=== PATIENT | female | born 1955 | race Caucasian/White ===

== ENCOUNTER 2017-07-16 21:20 | Inpatient (IN) | payer MEDICARE ==
[2017-07-17 02:00] VITALS: BP 148/68
--- NOTE | 2017-07-17 06:41 | Psychosocial Evaluation ---
DATE OF SERVICE: PSYCHIATRIC INITIAL EVALUATION AND MENTAL STATUS EXAM PATIENT'S AGE: 61. SEX: Female. PHYSICIAN: Dr. Baker. CHIEF COMPLAINT: 5150 hold for dangers to self and grave disability. HISTORY OF PRESENT ILLNESS: The patient is a 61-year-old female, who was placed on 5150 hold for dangerous to herself and grave disability after the patient reported to be confused and hallucinating. Chart reviewed and patient interviewed. The patient is actively hallucinating and the patient thinks that she is attacked by insects and there are insects that are attacking her. The patient also has been suspicious and had been paranoid and in angry mood. The patient also has been restless. She also was unable to provide any information regarding her current abilities or treatment. During my interview, the patient is angry and she seems to be severely paranoid. She also was rambling and actively talking to herself. The patient also admitted to auditory hallucinations, but she cannot elaborate on what the voices are telling her. PAST PSYCHIATRIC HISTORY: The patient has history of what seems to be bipolar versus schizoaffective disorder. PAST MEDICAL HISTORY: The patient has history of hypertension and heart murmur. Also, during my interview, the patient was having shaky hands and what might be a tardive dyskinesia. SOCIAL HISTORY: The patient said that she lives with her daughter and that she has 3 children. She is . She denies any alcohol or any street drug use. ALLERGIES: No known allergies. MENTAL STATUS EXAMINATION: The patient appears slightly older than her stated age. Disheveled. Shaky hands. Uncooperative. Thought processes are circumstantial with flight of ideas. The patient did not answer questions regarding hallucinations or delusions, but she reported before earlier that she has auditory hallucinations. The patient is paranoid and delusion and thinking that insects are attacking her. The patient denied suicidal or homicidal ideations. The patient is alert and oriented to time, place, person, and situation. Unable to assess her immediate or recent memory because the patient is uncooperative, but she did remember her date. Poor insight and poor judgment. ASSESSMENT/PRIMARY DIAGNOSIS: Bipolar disorder, severe, with psychotic features. MEDICAL PROBLEMS: Hypertension and heart murmur. TREATMENT PLAN: We will monitor the patient's behavior and condition closely. We will continue Seroquel and we will adjust the dose. Also, we will work on her ineffective coping, her agitation and paranoia. ESTIMATED LENGTH OF STAY: 5-7 days. THE PATIENT'S STRENGTHS AND WEAKNESSES: The patient's strength is not clear at this time. Weaknesses is ineffective coping. DISCHARGE PLAN: The patient will return to live in her placement with outpatient treatment and followup. CRITERIA FOR DISCHARGE: The patient will not be agitated or psychotic and will stabilize psychotropic medications and will establish outpatient treatment plans. [facility]# [id number]
--- NOTE | 2017-07-17 11:43 | History & Physical ---
ADMIT DATE: PATIENT IDENTIFICATION: A 61-year-old female. REQUESTING PHYSICIAN: Dr. Nish Baker. REASON FOR ADMISSION: Medical management. HISTORY SOURCE: Reviewing the chart, talking to the staff. The patient is an extremely poor historian. CHIEF COMPLAINT: "Where the star was born." HISTORY OF PRESENT ILLNESS: A 61-year-old female who was brought in to [facility] from [facility] when patient presented to Emergency Room for disorganized thoughts and unable to take care of herself. When the patient was evaluated by Emergency Room MD, the patient was also seen by psychiatrist. It was recommended the patient should be admitted to inpatient psychiatric hospital for her psychiatric illness management. The patient has longstanding history of psychiatric illnesses. PAST MEDICAL HISTORY: Remarkable for heart murmur and hypertension. MEDICATIONS AT HOME: Seroquel. ALLERGIES: NONE. SOCIAL HISTORY: According to the patient, she lives in [facility]. The patient does not smoke, does not drink, does not take drugs. MENSTRUAL AND GYNECOLOGIC HISTORY: The patient is menopausal. She has one child and she lives in [place]. OTHER HISTORY: The patient was unable to provide. FAMILY MEDICAL HISTORY: Unremarkable because the patient tells me all history is positive. REVIEW OF SYSTEMS: Denies any chest pain, shortness of breath, palpitation, dizziness, nausea, vomiting, diarrhea, dysuria, hematuria, hematochezia, melena. No seizure or syncopal episode. No weight loss or weight gain. No tingling, numbness. PHYSICAL EXAMINATION: GENERAL: The patient is alert, awake, lying in the bed without any acute distress. VITAL SIGNS: Temperature 98, pulse is 64, respiratory rate 18, blood pressure 130/70. HEENT: Normocephalic, atraumatic. Extraocular muscles are intact. Tongue was pink and coated. Poor dentition noted. No oral lesion noted. No sinus tenderness. External ____. NECK: Supple, no JVD, No hepatojugular reflux. No lymphadenopathy, thyromegaly, or carotid bruit. HEART: Both heart sounds are regular. No S3, no S4, no murmur. CHEST: Lung equal in expansion, no wheezing, no crackles. ABDOMEN: Soft. No guarding, no rigidity. Liver is not palpable. No palpable mass. EXTREMITIES: No edema, no cyanosis or clubbing present +2, no calf tenderness noted. NEUROLOGIC: Alert, awake, but not oriented to time, place, person. 2-12 cranial nerves are intact. Power in upper or lower extremities 5-. Sensation to touch intact. Babinskis in both toes are going down. Some involuntary tremors reported upon interviewing and examination. CLINICAL IMPRESSION: 1. Possible extrapyramidal movements versus underlying essential tremor. 2. Hypertension by history. Remaining normotensive. 3. Degenerative joint disease. 4. Obesity. 5. Psychotic disorder exacerbation. 6. Fall risk. PLAN: 1. Psychotic evaluation and management deferred to psychiatrist. 2. Fall precautions. 3. Monitor blood pressure. 4. Possible adding Cogentin after discussion with psychiatrist. 5. Nutritional care. 6. General nursing care. 7. We will follow this patient during the stay on as needed basis. JOB# [id number]
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
[2017-07-19] MEDS ORDERED: Haloperidol Lactate 5 mg/mL 1mL Vial ONE (07:14)
[2017-07-19] MEDS ORDERED: Haloperidol Lactate 5 mg/mL 1mL Vial IM ONE (07:15)
--- NOTE | 2017-07-19 20:54 | Progress Notes ---
DATE: 07/19/2017 SUBJECTIVE: Chart reviewed and the patient interviewed. Also discussed the patient's condition with the staff and reviewed records and labs. The patient continued to be delusional and still has unpredictable behavior. The patient also is trying hitting staffs. The patient also is still easily agitated and irritable and paranoid. She continued to be monitored on one-to-one observation because of her unpredictable behavior and condition with the staff. Otherwise, the patient is compliant with taking medications with no side effect of medications except shaky, but seems to be less with the addition of propranolol. ASSESSMENT: The patient is still dangerous to others. TREATMENT PLAN: Continue monitoring her behavior and her condition closely. Also, continue one-to-one observation. Also, continue to work on her poor impulse control. Also, we will increase Seroquel to 75 mg 3 times a day and continue to follow up. JOB# [id number]
--- NOTE | 2017-07-20 14:41 | Progress Notes ---
DATE: 07/20/2017 SUBJECTIVE: The patient seen and examined. Unable to get meaningful history from the patient. Discussed with nursing staff about their concerns and treatment plan. PHYSICAL EXAMINATION: VITAL SIGNS: Temperature 98.6, pulse is 80, respiration rate is 16, blood pressure 144/80. HEENT: No facial asymmetry. NECK: Supple, no JVD. HEART: Regular. CHEST: Lung equal in expansion. No wheezing, no crackles. ABDOMEN: Soft. EXTREMITIES: No edema. CLINICAL IMPRESSION: 1. Most likely essential tremor. 2. Hypertension. 3. Degenerative joint disease. 4. Psychotic disorder. 5. Fall risk. PLAN: Inderal for the essential tremor. Continue with provide symptoms management and provide general nursing care and also fall precautions. Psychotic evaluation deferred to psychiatrist. The patient does have MRSA colonization positive, which for that, Bactroban ointment will be given to the patient as well. JOB# [id number]
--- NOTE | 2017-07-20 22:28 | Progress Notes ---
DATE: SUBJECTIVE: The patient was seen and evaluated. The patient's chart reviewed. This is Dr. Bateman covering for Dr. Baker. IDENTIFYING DATA: This is a 61-year-old female who was initially brought in on , on a hold and who is 5250 was upheld yesterday for danger to self and grave disability. The patient reported to be hallucinating. She is actively hallucinating when she came in, disorganized thoughts, as early yesterday she had required emergent medications to target the patient's severe psychotic symptoms. Today on [id number] evaluation and perseverates easily, intrusive, irritable, minimizing and at times agitated, demanding to be discharged, but not engaging in linear conversation secondary to the paranoia. MENTAL STATUS EXAMINATION: Paranoid, delusional. ASSESSMENT AND PLAN: The patient with a history of schizophrenia, continues to be psychotic, disorganized. We will continue with the current increase of Seroquel to 75 mg p.o. t.i.d. to target the patient still impulsive and aggressive behavior. [facility]# [id number]
--- NOTE | 2017-07-22 02:43 | Progress Notes ---
DATE: 07/21/2017 SUBJECTIVE: The patient was seen and evaluated. This is Dr. Bateman Covering for Dr. Baker. Today on zicb-wh-mahc evaluation, the patient reports that her mood is a little bit better, she is" able to control her emotions little bit better." She denies any side effects to medications. MENTAL STATUS EXAMINATION: Disorganized, more goal oriented. ASSESSMENT AND PLAN: The patient is a 61-year-old female with a history of psychosis. It showed some mild improvement ____ redirectable. We will continue with the current medication regimen ____ improvement after recent increase of Seroquel. JOB# [id number]
[2017-07-22] MEDS ORDERED: Haloperidol Lactate 5 mg/mL 1mL Vial ONE (13:34)
[2017-07-22] MEDS ORDERED: Haloperidol Lactate 5 mg/mL 1mL Vial IM STA (13:40)
--- NOTE | 2017-07-22 17:50 | Progress Notes ---
DATE: 07/22/2017 SUBJECTIVE: The patient seen and examined. Unable to get meaningful history from the patient. Discussed with nursing staff about 24 hours event and their concerns and treatment plan. PHYSICAL EXAMINATION: VITAL SIGNS: Temperature 97, pulse is 64, respiratory rate is 18, blood pressure 133/84. HEENT: No facial asymmetry. Poor dentition noted. NECK: Supple, no JVD or lymphadenopathy. HEART: Both heart sounds are regular. No S3, no S4. CHEST: Lung equal expansion, expiratory wheezing. ABDOMEN: Soft. No guarding, rigidity. Bowel sounds were no palpable mass. EXTREMITIES: No edema. NEUROLOGIC: Unremarkable involuntary tremors of his upper and lower extremity noted. CLINICAL IMPRESSION: 1. Essential tremor. 2. Hypertension. 3. Degenerative joint disease. 4. Psychotic disorder. 5. Fall risk. 6. MRSA nares positive. PLAN: 1. Bactroban to the nares area b.i.d. 2. . 3. Psychotic medication as per psychiatrist. 4. General nursing care. 5. Fall precautions. 6. Follow lab. 7. We will follow this patient during the stay. JOB# [id number]
--- NOTE | 2017-07-22 21:22 | Progress Notes ---
DATE: 07/22/[address] Baker. Case was discussed with staff of the patient, reviewed records. This is a 61-year-old female who was admitted on the 07/16/2017. It was upheld for danger to self and grave disability. The patient was confused, hallucinating, responding to internal stimuli. She thinks that she was attacked by an insect and an insect was attacking her. She has been very paranoid and suspicious. Unable to formulate safe plan for self-care. She continues to be labile, demented, confused. She is compliant with the medication, no side effects and she is on Seroquel that was increased this morning to 75 mg 3 times a day as by herself in order from Dr. Baker. She continues to have poor insight and unpredictable impulsive and we will continue with the patient in group therapy, milieu therapy, adjust medication as needed. JOB# [id number]
--- NOTE | 2017-07-23 23:01 | Progress Notes ---
DATE: 07/23/2017 Case was discussed with staff of the patient. The patient continues to be demented, confused, acting very inappropriately, unable to take care of herself. Unable to remember anything. ____ very confused, hallucinating, responding to internal stimuli. Continues to be unable to participate in meaningful conversation, unable to make safe plan for self-care. Her Seroquel dose was increased to 75 mg 3 times a day and so far as she knows she is compliant with the medication, no side effects, no sedation nausea, no extrapyramidal symptoms. We will continue patient in group therapy, milieu therapy, and adjust medications as needed. JOB# [id number]
[2017-07-24] MEDS ORDERED: Haloperidol Lactate 5 mg/mL 1mL Vial IM ONE (16:12)
[2017-07-24] MEDS ORDERED: Haloperidol Lactate 5 mg/mL 1mL Vial ONE (16:13)
--- NOTE | 2017-07-24 22:07 | Progress Notes ---
DATE: Chart reviewed and the patient interviewed. Also discussed the patient's condition with the staff and reviewed records and labs. The patient is still agitated and is still in irritable and angry mood. The patient also is still aggressive and she is still threatening others and clenching her fists while threatening others pretending that she is going to punch them. The patient also is still unpredictable and is still monitored closely because of her aggressive and unpredictable behavior. Otherwise, the patient is compliant with taking her medications with no side effects of medications. ASSESSMENT: The patient is still agitated and can be dangerous to others. TREATMENT PLAN: We will continue to monitor her behavior and her condition closely. Also, continue adjusting psychotropic medications and follow up closely. [facility]# [id number]
--- NOTE | 2017-07-26 01:11 | Progress Notes ---
DATE: 07/25/2017 PATIENT IDENTIFICATION: A 61-year-old female. SUBJECTIVE: The patient seen and examined. The patient is lying in the bed. The patient unable to get meaningful history from the patient. Available nurse's note reviewed. OBJECTIVE: VITAL SIGNS: On exam, temperature 98, pulse is 74, respiratory rate 16, blood pressure 144/80. HEENT: No facial asymmetry. Poor dentition noted. Tongue is pink and coated. NECK: Supple, no JVD. LYMPH: No thyromegaly. HEART: Regular, no murmur. CHEST: Lung equal in expansion. No wheezing, no crackles. ABDOMEN: Soft. No guarding. No rigidity. Bowel sounds are not palpable. EXTREMITIES: No edema. Peripheral pulses are +1. NEUROLOGIC: Alert, awake, follows commands. Involuntary tremors on upper and lower extremity noted. CLINICAL IMPRESSION: 1. Hypertension. 2. Psychotic disorder. 3. Degenerative joint disease. 4. Essential tremor. 5. Fall risk. PLAN: 1. Inderal for the essential tremor. 2. ____ for the blood pressure. 3. Low sodium diet. 4. Bactroban ointment. 5. General nursing care. 6. Fall precautions. 7. Nutritional support. 8. We will continue to follow this patient during the stay in the hospital. JOB# [id number]
--- NOTE | 2017-07-28 01:57 | Progress Notes ---
DATE: 07/27/2017 SUBJECTIVE: A 61-year-old female placed on a hold, grave disability, confused, hallucinating, thinks she is being attacked by insects. Believes insects are attacking her and she is suspicious and paranoid. On [id number]-az-[id number], the patient impoverished. On exam, she does not know why she is here. She does know the year or the month. She states that she lives at home with her sister. She gives me her address. She tells me she use Depakote, Seroquel, Cogentin, and "something for my bladder." The patient is wandering in the unit, unable to really care for herself, concerns for safety, concerns for her ability to care for self. The patient remains irritable, still angry, sometimes threatening others, still remains unruly. Medications were noted including doses and frequencies. She is eating fairly well. The patient with maintenance assistant awakenings. ASSESSMENT: The patient remains agitated, dangerous, impulsive, unpredictable. PLAN: We will continue to monitor. Her medications were noted. Given her ongoing symptoms, she is not safe for discharge. Consider adding Depakote to her regimen. [facility]# [id number]
--- NOTE | 2017-07-28 17:09 | Progress Notes ---
DATE: SUBJECTIVE: The patient is currently in the hospital and placed on a hold for grave disability. The patient reported to be confused, hallucinating, thinking that she was attacked by insects. The patient has been more suspicious and paranoid. On pjio-uc-rivh, the patient is somewhat calmer, more cooperative, following unit rules and directions. No agitation, but she is pretty confused as to why she is here. Dr. Baker seeing the patient in a few days prior, noted she remains aggressive, impulsive, unpredictable, posturing towards staff. When I saw her yesterday she was fairly calm but seemed confused, disoriented. She did know her medications. The patient is eating fairly well, sleeping with child care coordinator awakenings. MEDICATIONS: Noted. ASSESSMENT: The patient remains impulsive, unpredictable, still with some periods of agitation, escalation of behaviors and concerns for underlying psychotic symptoms. PLAN: We will continue to monitor. Continue Seroquel at current dose. The patient to follow up with Dr. Baker in the morning. JOB# [id number]
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
[2017-07-30] MEDS: Magnesium Hydroxide (MOM) 30 mL UDC PO PRN (08:38)
[2017-07-31] MEDS ORDERED: Haloperidol Lactate 5 mg/mL 1mL Vial ONE (09:43)
[2017-07-31] MEDS ORDERED: Haloperidol Lactate 5 mg/mL 1mL Vial IM ONE (09:44)
--- NOTE | 2017-07-31 14:45 | Progress Notes ---
DATE: 07/31/[address] Baker. Case was discussed with staff of the patient and reviewed records. This is a well-known case to me. I have seen her before, covering for Dr. Baker and apparently she had to be given an injection today. She continues to be acting out. Continues to be violent, threatening. Continues to have poor insight. Continues to be easily agitated. Also having episodes of confusion and hallucination, responding to internal stimuli and she is on Seroquel that was increased yesterday to 300 mg 3 times a day with no side effects, no sedation, no nausea, no extrapyramidal symptoms. We will continue to work with the patient in group therapy, milieu therapy, adjust the medication as needed. JOB# [id number]
--- NOTE | 2017-08-01 15:25 | Progress Notes ---
DATE: 08/01/2017 Case was discussed with staff of the patient and reviewed records. The patient continues to be acting out. Continues to be unpredictable, impulsive, responding to internal stimuli, continues to have poor insight, at times violent and threatening. She has been compliant with the medication with no side effects, no sedation, no nausea, and no extrapyramidal symptoms. Dr. Baker increased her Seroquel to 300 mg 3 times a day. Today though she is a little bit easier to talk to; however, she is still unpredictable, impulsive. Nobody can guess how she is going to be doing an hour or later today and no side effects with the medication, no sedation, no nausea, and no extrapyramidal symptoms. We will continue to work with the patient in group therapy, milieu therapy, adjust the medication as needed. JOB# [id number]
--- NOTE | 2017-08-01 21:37 | General Progress Note ---
Subjective - Review of Systems Service Date: 08/01/17 Subjective: Patient seen and examined doing ok no new medical concern noted Objective - Physical Exam Vitals and I&O: Vital Signs Temp 98.2 F 08/01/17 20:00 Pulse 54 08/01/17 20:11 Resp 20 08/01/17 20:00 BP 104/77 08/01/17 20:11 Pulse Ox 98 08/01/17 20:00 Intake & Output 08/01/17 08/01/17 08/02/17 06:59 18:59 06:59 Intake Total 240 240 Balance 240 240 Intake: Oral 240 240 Other: # Voids 3 3 Active Medications: Current Medications Acetaminophen (Tylenol) 650 mg PO Q4HR PRN PRN Reason: Mild Pain / Temp above 100 Stop: 09/14/17 20:44 Last Admin: 07/31/17 00:57 Dose: 650 mg Lorazepam (Ativan) 1 mg PO TID PUSHPA PRN Reason: Protocol Stop: 09/28/17 08:59 Last Admin: 08/01/17 20:12 Dose: 1 mg Magnesium Hydroxide (Milk Of Magnesia) 30 ml PO HS PRN PRN Reason: Constipation Stop: 09/19/17 09:04 Last Admin: 07/30/17 08:38 Dose: 30 ml Propranolol HCl (Inderal) 10 mg PO TID [facility] Stop: 09/16/17 08:59 Last Admin: 08/01/17 20:11 Dose: Not Given Quetiapine Fumarate (Seroquel) 300 mg PO TID [facility] Stop: 09/28/17 08:59 Last Admin: 08/01/17 20:12 Dose: 300 mg Zolpidem Tartrate (Ambien) 5 mg PO HS PRN PRN Reason: Insomnia Stop: 09/29/17 23:55 Last Admin: 08/01/17 20:13 Dose: 5 mg Cardiovascular: Regular rate Lungs: Clear to auscultation Assessment/Plan - Assessment Assessment: HTN MRSA COLONIZATION ESSENTIAL TREMOR MENTAL HEALTH DISORDER - Plan Plan: Continue current treatment Fall precaution Asp precaution Bactroban Monitor vitals Nutritional Asmnt/Malnutr-PDOC - Dietary Evaluation Malnutrition Findings (Please click <Entered> for more info): Nutritional Asmnt/Malnutrition Start: 07/20/17 09: 51 Text: Status: Complete Freq: Document 07/20/17 09:52 EGRIFFITH (Rec: 07/20/17 09:56 RAADAGUILAR CARBAJALN- [id number]) Nutritional Asmnt/Malnutrition Patient General Information Nutritional Screening Low Risk Diagnosis Psychosis nos RFV Pertinent Medical Hx/Surgical Hx heart murmur, HTN, obesity Subjective Information Pt sitting up listening to music in rec room, reports good appetite and no nutrition concerns. Current Diet Order/ Nutrition Support Regular Pertinent Medications reviewed Pertinent Labs no labs as of 07/20/17 @ 0900 Nutritional Hx/Data Height 1.7 m Height (Calculated Centimeters) 170.2 Current Weight (lbs) 89.811 kg Weight (Calculated Kilograms) 89.8 Weight (Calculated Grams) 86871.3 Body Mass Index (BMI) 31.0 Recent Weight Change No Weight Status Obese GI Symptoms GI Symptoms None Last BM 06/21 x1 Difficult in: None Cultural/Ethnic/Mandaen Belief None noted Usual diet at home unable to report Skin Integrity/Comment: Arslan score 19 Current %PO Good (75-100%) Estimated Nutritional Goals BEE in Kcals: Using Current wt Calories/Kcals/Kg 25kcals/kg Kcals Calculated 2250kcals/day Protein: Using Current wt Protein g/kg/kg Protein Calculated 90g/day Fluid: ml 2250ml/day (1ml/kcal) Nutritional Problem 1. Problem Problem No nutrition diagnosis at this time. Intervention/Recommendation Comments Recommend continuing Regular diet Expected Outcomes/Goals Expected Outcomes/Goals PO intake >75% of meals
--- NOTE | 2017-08-02 21:12 | Progress Notes ---
DATE: 08/02/2017 Case was discussed with staff of the patient, reviewed records. The patient today was calmer; however, when I talked to the staff, they said they just gave her an IM emergency medication. Continues to be unpredictable and impulsive. Continues to have poor insight, psychotic, and needing redirection. She is on Seroquel now 300 mg 3 times a day, was increased [address] Baker. No side effects with the medication, no sedation, no nausea, and no extrapyramidal symptoms. We will continue to work with the patient in group therapy, milieu therapy, and adjust the medications as needed. JOB# [id number]
[2017-08-03] MEDS: Magnesium Hydroxide (MOM) 30 mL UDC PO PRN (17:50)
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
--- NOTE | 2017-08-05 11:44 | Progress Notes ---
DATE: 08/05/2017 SUBJECTIVE: A 61-year-old female placed on a hold, gravely disabled, confused, hallucinating. I have seen this patient previously. She seems to be improving, less agitated, psychotic symptoms dissipating. She is quite a bit less paranoid, no longer talking about seeing things. No longer talking about bugs. Medications reviewed including dosages and frequencies. The patient still believes she is going home, but placement has been confirmed. She is also on Seroquel, Haldol decanoate. No agitation, no escalation of behaviors. ASSESSMENT: The patient improving, less paranoid. No aggressive or violent behaviors. PLAN: We will continue to monitor for further 24 hours on the side of caution, placement has been confirmed. JOB# [id number]
--- NOTE | 2017-08-06 12:28 | Progress Notes ---
DATE: 08/06/2017 The patient noted to be more oriented, calm, cooperative, sleeping well, eating well, no agitation, no escalation of behaviors. The patient tolerant to treatment, amenable to treatment. ASSESSMENT: Better ADLs, more oriented and engaged, no SI, no HI, no intent, no plan, no psychotic symptoms, better insight, better judgment. No paranoia. No evidence of any hallucinations. PLAN: We will discharge today. No inpatient criteria. Improvement noted. Placement has been confirmed. [facility]# [id number]
== END 2017-08-06 15:15 | DRG 885 ==
LOC: GERO2 21:20 → GERO 07-18 16:13
PROVIDERS: ADMIT Psychiatry & Neurology Psychiatry; ATTEND Psychiatry & Neurology Psychiatry
DX: F31.5 Bipolar disorder, current episode depressed, severe, with psychotic features (principal); I10 Essential (primary) hypertension; R01.1 Cardiac murmur, unspecified; M19.90 Unspecified osteoarthritis, unspecified site; R25.1 Tremor, unspecified; E66.9 Obesity, unspecified; Z91.81 History of falling; Z68.31 Body mass index [BMI] 31.0-31.9, adult; Z22.322 Carrier or suspected carrier of Methicillin resistant Staphylococcus aureus
CPT/HCPCS: 90899; G0410; J1200; J1630; J1631; J2060; Z7610